=== PATIENT | female | born 1980 | race Caucasian/White ===

== ENCOUNTER 2016-06-21 06:27 | Emergency (ER) | payer OTHER ==
[~2016-06-21] VITALS: Ht 162.6 cm; Wt 63.5 kg
[2016-06-21 06:55] LABS: BASO % 0.6 % (0.0-1.0); EOS # 0.1 K/mm3 (0.0-0.50); EOS % 3.6 % (0.0-3.0); LARGE UNSTAINED CELL # 0.1 K/mm3 (0.0-0.4); LARGE UNSTAINED CELL % 2.1 % (0.0-4.0); LYMPH # 1.6 K/mm3 (1.5-4.5); LYMPH % 49.6 % (24.0-44.0); MEAN CORPUSCULAR HGB CONC 33.2 g/dl (32.0-36.5); MEAN CORPUSCULAR VOLUME 93.4 fl (80.0-96.0); MONO # 0.2 K/mm3 (0.0-0.8); NEUTROPHILS # 1.3 K/mm3 (1.8-7.7); NEUTROPHILS % 39.3 % (36.0-66.0); PLATELET COUNT, AUTOMATED 290 k/mm3 (150-450); RED CELL DISTRIBUTION WIDTH 12.8 % (11.5-14.5); WHITE BLOOD COUNT 3.3 K/mm3 (4.0-10.0)
[2016-06-21 07:06] LABS: INR 0.98
[2016-06-21 07:12] LABS: CONTROL LINE HCG INT CTR LINE PRESENT
[2016-06-21 07:20] LABS: ANION GAP 10 MEQ/L (8-16); BLOOD UREA NITROGEN 10 MG/DL (7-18); CARBON DIOXIDE LEVEL 24 MEQ/L (21-32); CHLORIDE LEVEL 103 MEQ/L (98-107); CREATININE FOR GFR 0.74 MG/DL (0.55-1.02); FREE T4 1.15 NG/DL (0.76-1.46); GLOMERULAR FILTRATION RATE > 60.0 (>60); GLUCOSE, FASTING 116 MG/DL (70-105); MAGNESIUM LEVEL 1.9 MG/DL (1.8-2.4); POTASSIUM SERUM 3.9 MEQ/L (3.5-5.1); SODIUM LEVEL 137 MEQ/L (136-145)
[2016-06-21 07:26] LABS: ALBUMIN 3.3 GM/DL (3.2-5.2); ALKALINE PHOSPHATASE 56 U/L (45-117); ALT/SGPT 17 U/L (12-78); AST/SGOT 19 U/L (15-37); BILIRUBIN,DIRECT < 0.1 MG/DL (0.0-0.2); BILIRUBIN,TOTAL 0.3 MG/DL (0.2-1.0); TOTAL PROTEIN 6.6 GM/DL (6.4-8.2)
[2016-06-21] MEDS ORDERED: NS 1,000 ML IV ONE (07:30)
--- NOTE | 2016-06-21 08:29 | ECGEPIP ---
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
--- NOTE | 2016-06-21 08:48 | REP ---
CT Head without contrast HISTORY: Syncope COMPARISON: None There is no intraparenchymal hemorrhage, acute infarct, mass or midline shift. The ventricular system is normal in appearance. There is no extra cerebral collection. There is no fracture. The visualized sinuses are clear. IMPRESSION: There is no intracranial lesion. Signed by Mian Tillman MD 06/21/2016 08:40 A
[2016-06-21 09:04] LABS: METHADONE URINE NEGATIVE (NEGATIVE)
--- NOTE | 2016-06-21 09:12 | REP ---
CHEST, SINGLE VIEW: There is no evidence of acute infiltrate. No pleural effusion is seen. The heart is normal in size. The mediastinal silhouette is unremarkable. The visualized osseous structures are intact. IMPRESSION: No acute pulmonary disease. Signed by Jericho Bliss MD 06/21/2016 07:43 P
--- NOTE | 2016-06-21 09:14 | REP ---
OS CALCIS: Two views of the calcaneus are performed and demonstrate no fracture, dislocation or intrinsic bone disease. IMPRESSION: No abnormalities detected. Signed by Jericho Bliss MD 06/21/2016 07:43 P
[2016-06-21 09:45] VITALS: BP 101/58
[2016-06-21 10:09] LABS: FOLATE 5.7 NG/ML (>5.4)
== END 2016-06-21 09:48 | disposition home or self-care (01) ==
LOC: M ED 09:35
DX: F10.220 Alcohol dependence with intoxication, uncomplicated (principal); R55 Syncope and collapse; Z98.84 Bariatric surgery status
CPT/HCPCS: 36415; 70450; 71010; 73650; 80048; 80076; 80306; 81001; 82550; 82553; 82607; 82746; 83735; 84439; 84443; 84703; 85025; 85379; 85610; 85730; 87086; 93005; 93041; 99284; G0480